=== PATIENT | female | born 1950 | race Caucasian/White ===

== ENCOUNTER 2023-05-02 12:09 | Day surgery (SDC) | payer MEDICARE ==
[~2023-05-02] VITALS: Ht 152.4 cm; Wt 61.2 kg
[~2023-05-02 12:09] MED LIST: OMEP-173 PO; PRES1CAP PO
[2023-05-02] MEDS: NS 1,000 ML IV ONE (13:08)
[2023-05-02 14:39] VITALS: TEMP 98
[2023-05-02 14:55] VITALS: BP 150/72; O2SAT 95
== END 2023-05-02 14:59 | disposition home or self-care (01) ==
LOC: M OPP 12:09
PROVIDERS: ATTEND Internal Medicine Gastroenterology
DX: K44.9 Diaphragmatic hernia without obstruction or gangrene (principal); K22.2 Esophageal obstruction; K29.70 Gastritis, unspecified, without bleeding; K22.89 Other specified disease of esophagus; K31.89 Other diseases of stomach and duodenum; R13.10 Dysphagia, unspecified; Z87.891 Personal history of nicotine dependence; Z79.899 Other long term (current) drug therapy

== ENCOUNTER 2023-07-26 07:53 | Day surgery (SDC) | payer MEDICARE ==
[~2023-07-26] VITALS: Ht 152.4 cm; Wt 60.0 kg
[~2023-07-26 07:53] MED LIST changes: +LISI10TA24 PO
[2023-07-26] MEDS: NS 1,000 ML IV ONE (08:12)
[2023-07-26] MEDS ORDERED: propofoL 200 MG/20 ML VIAL As Ordered ONE (08:32)
[2023-07-26] MEDS ORDERED: LIDOCAINE 2% INJ 100 MG/5 ML SYRINGE As Ordered ONE (08:32)
[2023-07-26] MEDS ORDERED: ONDANSETRON 4MG 2ML VIAL As Ordered ONE (09:09)
[2023-07-26 09:16] VITALS: TEMP 96.5
[2023-07-26 09:45] VITALS: BP 143/66; O2SAT 95
== END 2023-07-26 10:13 | disposition home or self-care (01) ==
LOC: M OPP 07:53
PROVIDERS: ATTEND Internal Medicine Gastroenterology
DX: K22.2 Esophageal obstruction (principal); K44.9 Diaphragmatic hernia without obstruction or gangrene; K29.70 Gastritis, unspecified, without bleeding; K21.00 Gastro-esophageal reflux disease with esophagitis, without bleeding; I10 Essential (primary) hypertension; Z85.51 Personal history of malignant neoplasm of bladder; Z92.21 Personal history of antineoplastic chemotherapy; Z79.899 Other long term (current) drug therapy; Z87.891 Personal history of nicotine dependence
CPT/HCPCS: 43249; 88305; J2405